=== PATIENT | male | born 1995 | race Caucasian/White ===

== ENCOUNTER 2018-01-30 19:27 | Emergency (ER) | payer OTHER ==
[2018-01-30 19:36] VITALS: Ht 182.9 cm
[2018-01-30 20:12] VITALS: BP 107/69
== END 2018-01-30 20:12 | disposition home or self-care (01) ==
LOC: ED 19:27
DX: M70.21 Olecranon bursitis, right elbow (principal); Y93.89 Activity, other specified; J45.909 Unspecified asthma, uncomplicated; F17.210 Nicotine dependence, cigarettes, uncomplicated

== ENCOUNTER 2018-11-18 20:20 | Emergency (ER) | payer OTHER ==
[~2018-11-18] VITALS: Ht 182.9 cm; Wt 79.4 kg
[2018-11-18 20:25] VITALS: Ht 182.9 cm; Wt 79.4 kg
[2018-11-18 21:00] LABS: BASOPHIL % 0.5 % (0-2); PLATELET COUNT 157 x10^3mcL (130-400); RED CELL DISTRIBUTION WIDTH 13.2 % (11.5-14.5)
[2018-11-18 21:09] LABS: CALCIUM 9.1 mg/dL (8.5-10.1); CARBON DIOXIDE 24.8 mmol/L (21-32); CHLORIDE SERUM 105 mmol/L (98-107); CREATININE SERUM 1.1 mg/dL (0.7-1.3); GFR1 > 60 mL/min; GLUCOSE SERUM 124 mg/dL (74-106); POTASSIUM SERUM 3.5 mmol/L (3.5-5.1); SODIUM SERUM 139 mmol/L (136-145)
[2018-11-18 21:13] LABS: ALBUMIN 4.3 g/dL (3.4-5.0); ALKALINE PHOSPHATASE 76 U/L (46-116); ALT/SGPT 18 U/L (16-63); AST/SGOT 20 U/L (15-37); BILIRUBIN TOTAL 1.14 mg/dL (0.20-1.00); TOTAL PROTEIN, SERUM 7.1 g/dL (6.4-8.2)
[2018-11-18 21:47] LABS: microscopic required? NO
[2018-11-18 21:59] LABS: UA SPECIFIC GRAVITY 1.015 (1.005-1.035); urine erythrocyte NEGATIVE (NEGATIVE)
[2018-11-18 22:44] VITALS: BP 134/82
== END 2018-11-18 22:44 | disposition home or self-care (01) ==
LOC: ED 20:20
PROVIDERS: Emergency Medicine
DX: J06.9 Acute upper respiratory infection, unspecified (principal); J45.909 Unspecified asthma, uncomplicated
CPT/HCPCS: 36415; 87804; J7030; Q0092

== ENCOUNTER 2018-11-25 16:24 | Emergency (ER) | payer OTHER ==
[~2018-11-25] VITALS: Ht 182.9 cm; Wt 76.2 kg
[2018-11-25 16:34] VITALS: Ht 182.9 cm; Wt 76.2 kg
[2018-11-25 20:43] LABS: BASOPHIL % 0.4 % (0-2); PLATELET COUNT 180 x10^3mcL (130-400)
[2018-11-25 20:50] LABS: CARBON DIOXIDE 27.4 mmol/L (21-32); CHLORIDE SERUM 105 mmol/L (98-107); CREATININE SERUM 0.9 mg/dL (0.7-1.3); GFR1 > 60 mL/min; GLUCOSE SERUM 93 mg/dL (74-106); POTASSIUM SERUM 3.6 mmol/L (3.5-5.1); SODIUM SERUM 142 mmol/L (136-145)
[2018-11-25 20:55] LABS: ALBUMIN 4.5 g/dL (3.4-5.0); ALKALINE PHOSPHATASE 74 U/L (46-116); ALT/SGPT 18 U/L (16-63); AST/SGOT 10 U/L (15-37); BILIRUBIN TOTAL 1.41 mg/dL (0.20-1.00); TOTAL PROTEIN, SERUM 7.4 g/dL (6.4-8.2)
[2018-11-25 21:00] VITALS: BP 119/77
== END 2018-11-25 21:57 | disposition home or self-care (01) ==
LOC: ED 16:24
PROVIDERS: Emergency Medicine
DX: J02.9 Acute pharyngitis, unspecified (principal); R07.89 Other chest pain
CPT/HCPCS: 85378; J1885

== ENCOUNTER 2019-05-19 22:40 | Emergency (ER) | payer OTHER ==
[~2019-05-19] VITALS: Ht 182.9 cm; Wt 84.6 kg
[2019-05-20 01:14] VITALS: BP 119/80
== END 2019-05-20 01:14 | disposition home or self-care (01) ==
LOC: ED 22:40
DX: K04.7 Periapical abscess without sinus (principal); J45.909 Unspecified asthma, uncomplicated

== ENCOUNTER 2019-09-22 19:04 | Emergency (ER) | payer OTHER ==
[~2019-09-22] VITALS: Ht 182.9 cm; Wt 76.4 kg
[2019-09-22 19:13] VITALS: Ht 182.9 cm; Wt 76.4 kg
[2019-09-22 20:28] LABS: BASOPHIL % 0.5 % (0-2); PLATELET COUNT 167 x10^3mcL (130-400); RED CELL DISTRIBUTION WIDTH 13.7 % (11.5-14.5)
[2019-09-22 20:39] LABS: CALCIUM 9.6 mg/dL (8.5-10.1); CARBON DIOXIDE 29.2 mmol/L (21-32); CHLORIDE SERUM 103 mmol/L (98-107); CREATININE SERUM 0.9 mg/dL (0.7-1.3); GFR1 > 60 mL/min; GLUCOSE SERUM 90 mg/dL (74-106); POTASSIUM SERUM 4.6 mmol/L (3.5-5.1); SODIUM SERUM 141 mmol/L (136-145)
[2019-09-22 20:43] LABS: ALBUMIN 4.7 g/dL (3.4-5.0); ALKALINE PHOSPHATASE 63 U/L (46-116); ALT/SGPT 16 U/L (16-63); AST/SGOT 14 U/L (15-37); BILIRUBIN TOTAL 1.3 mg/dL (0.20-1.00); MAGNESIUM 2.1 mg/dL (1.8-2.4); TOTAL PROTEIN, SERUM 7.5 g/dL (6.4-8.2)
[2019-09-22 20:54] LABS: T3 TOTAL 1.16 ng/mL
[2019-09-22 21:08] LABS: FREE T4 1.44 ng/dL (0.76-1.46); FREE THYROXINE INDEX 2.8 ug/dL (1.4-4.5); T4(THYROXINE) 7.9 ug/dL (4.7-13.3)
[2019-09-22 21:15] LABS: AMPHETAMINE QUAL UR NONE DETECTED (See below)
[2019-09-22 23:36] VITALS: BP 115/64
== END 2019-09-22 23:36 | disposition home or self-care (01) ==
LOC: ED 19:04
PROVIDERS: Emergency Medicine
DX: R07.89 Other chest pain (principal); R00.2 Palpitations; F17.210 Nicotine dependence, cigarettes, uncomplicated; J45.909 Unspecified asthma, uncomplicated
CPT/HCPCS: 36415; 84439; 99406; Q0092

== ENCOUNTER 2020-01-07 18:57 | Emergency (ER) | payer OTHER ==
[~2020-01-07] VITALS: Ht 182.9 cm; Wt 83.9 kg
[2020-01-07 19:09] VITALS: Ht 182.9 cm; Wt 83.9 kg
[2020-01-07 20:16] VITALS: BP 122/81
== END 2020-01-07 19:51 | disposition home or self-care (01) ==
LOC: ED 18:57
DX: H10.9 Unspecified conjunctivitis (principal); J45.909 Unspecified asthma, uncomplicated